=== PATIENT | female | born 1950 | race Caucasian/White ===

== ENCOUNTER → 2020-04-03 | Outpatient (CLI) | payer MEDICARE, OTHER ==
--- NOTE | 2020-03-30 12:50 | HP ---
HISTORY AND PHYSICAL CHIEF COMPLAINT: Right shoulder pain. HISTORY OF PRESENT ILLNESS: The patient is a 70-year-old, left-hand dominant, retired female who presents with progressive right shoulder pain worsening after injury in October of this year. She fell landing on her right shoulder. She notes diminished motion and pain ever since. She is having difficult time raising her arm overhead. She is also having significant night symptoms. She has tried medications without much relief. PAST MEDICAL HISTORY: Significant for depression, arthritis. PAST SURGICAL HISTORY: Significant for left rotator cuff repair, splenectomy. CURRENT MEDICATIONS: Amitriptyline, aspirin, hydroxyzine, Motrin and Lortab. ALLERGIES: BENADRYL, SHELLFISH. FAMILY HISTORY: Significant for heart disease and cancer. SOCIAL HISTORY: Significant for one pack per day tobacco use. REVIEW OF SYSTEMS: Sixteen-point review of systems otherwise reviewed and is noncontributory. PHYSICAL EXAMINATION: On examination, the patient is approximately 5 foot 6, 175 pounds of mesomorphic habitus. HEENT exam is nonfocal. Neck is supple. On examination of her right shoulder, she is tender about the anterior subacromial space. She has moderate subacromial crepitus. Active range of motion. Forward elevation 135 degree, external rotation with the arm at side 10 degrees, internal rotation to L2. Motor strength is 4-/5 for external rotation and 4-/5 for abduction. Impingement test, Neer test, and Speed test are positive. Her distal neurovascular otherwise appears intact in the right upper extremity. MRI of right shoulder 03/08/2020 shows a retracted large rotator cuff tear with muscular atrophy. Subluxation along the biceps is noted. IMPRESSION: Acute on chronic large right rotator cuff tear with arthropathy. RECOMMENDATIONS: I talked to the patient at length regarding her condition along with treatment options. At this point, she is quite symptomatic and limited because of pain. After thorough discussion, she opts to proceed with surgery. We will plan to proceed with right reverse total shoulder arthroplasty. We will institute DVT prophylaxis postoperatively. The risks and benefits were discussed at length in layman's terms. MMODL / IJN: [id number] /
--- NOTE | 2020-04-03 13:29 | EST ---
EXERCISE STRESS AGE: 70 SEX: F HT: 66" WT: 165 lbs. PROTOCOL: Ronnie STAGE: 2 DURATION OF EXERCISE: 5:00 HEART RATE REST: 92 BLOOD PRESSURE REST: 110/81 MAXIMUM HEART RATE ACHIEVED: 138 MAXIMUM BLOOD PRESSURE: 148/74 85% MPHR: 128 100% MPHR: 150 METS: 7.0 INDICATIONS: Abnormal EKG. CLINICAL INFORMATION: Baseline EKG revealed normal sinus rhythm with precordial T-wave inversion and right ventricular conduction delay. Patient walked for 5 minutes on standard Ronnie protocol. Achieved a maximal heart rate of 136 beats per minute which is more than 85% of predicted maximum. Developed fatigue and shortness of breath but did not have any angina or arrhythmia. There was a lot of baseline artifact. Rare PVCs were noted. There is no evidence of stress-induced ischemia on this study and patient did not have angina. FINAL IMPRESSION .: 1. Limited exercise capacity. 2. Negative stress test by EKG criteria, even though there were minor resting EKG changes to begin with. The patient achieved a heart rate of well above 85% of predicted maximal. MMODL / IJN: [id number] /
== END | disposition home or self-care (01) ==
LOC: RADNMMAIN 10:13
PROVIDERS: ATTEND Family Medicine
DX: R94.31 Abnormal electrocardiogram [ECG] [EKG] (principal)
CPT/HCPCS: 93017

== ENCOUNTER 2020-04-09 07:12 | Inpatient (IN) | payer MEDICARE, OTHER ==
[2020-04-01 18:00] VITALS: BMI 26.6
[~2020-04-09 07:12] MED LIST: ACETAMINOPHEN TAB 500 MG TAB PO ONE; DEXAMETHASONE SOD PHOSPHATE 10 MG/ML 1 ML VIAL IV ONE; MELOXICAM 7.5 MG TAB PO ONE; MIDAZOLAM 2 MG/2 ML VIAL IV PRN; ONDANSETRON 4 MG/2 ML VIAL IVP ONE; TRANEXAMIC ACID 1,000 MG in SODIUM CHLORIDE 0.9% 100 ML IVPB ONE; VANCOMYCIN 1,000 MG in SODIUM CHLORIDE 0.9% 250 ML IVPB ONE
[2020-04-09] MEDS: LACTATED RINGERS 1,000 ML IV SCH (08:32)
[2020-04-09] MEDS ORDERED: LIDOCAINE 1% (10MG/ML) FOR IV START INTRADERMA ONE (08:32)
[2020-04-09] MEDS ORDERED: ONDANSETRON 4 MG/2 ML VIAL ONE (08:38)
[2020-04-09] MEDS ORDERED: ACETAMINOPHEN TAB 500 MG TAB ONE (08:39)
[2020-04-09] MEDS ORDERED: SODIUM CHLORIDE 0.9% 100 ML BAG ONE (10:27)
[2020-04-09] MEDS ORDERED: SUCCINYLCHOLINE CHLORIDE 100 MG/5 ML SYR IV ONE (10:27)
[2020-04-09] MEDS ORDERED: PROPOFOL 10 MG/ML 20 ML VIAL IV ONE (10:27)
[2020-04-09] MEDS ORDERED: ROPIVACAINE 5 MG/ML 30 ML VIAL ONE (10:27)
[2020-04-09] MEDS ORDERED: ROCURONIUM 10 MG/ML (5 ML VIAL) IV ONE (10:27)
[2020-04-09] MEDS ORDERED: TRANEXAMIC ACID 1,000 MG/10 ML VIAL ONE (10:27)
[2020-04-09] MEDS ORDERED: fentaNYL (PF) 50 MCG/ML 2 ML AMP ONE (10:27)
[2020-04-09] MEDS ORDERED: LIDOCAINE 1% INJ 10MG/ML (20 ML MDV) ONE (10:27)
[2020-04-09] MEDS ORDERED: MIDAZOLAM 2 MG/2 ML VIAL ONE (10:27)
[2020-04-09] MEDS ORDERED: HYDROmorphone (PF) 1 MG/ML ONE (10:27)
[2020-04-09] MEDS ORDERED: NEOSTIGMINE 1 MG/ML 10 ML VIAL ONE (10:27)
[2020-04-09] MEDS ORDERED: PHENYLEPHRINE-0.9% NACL SYG 1 MG/10 ML SYRINGE ONE (10:27)
[2020-04-09] MEDS ORDERED: GLYCOPYRROLATE 0.2 MG/ML 2 ML VIAL ONE (10:27)
[2020-04-09] MEDS ORDERED: ceFAZolin 3,000 MG in SODIUM CHLORIDE 0.9% IRRIGATIO 3,000 ML IRRIGATION ONE (10:58)
[2020-04-09] MEDS ORDERED: HYDROcodone/APAP 5-325MG 1 EACH TAB PO PRN (12:32)
[2020-04-09] MEDS ORDERED: ONDANSETRON 4 MG/2 ML VIAL IVP PRN (12:32)
[2020-04-09] MEDS ORDERED: LACTATED RINGERS 1,000 ML IV ONE (12:47)
--- NOTE | 2020-04-09 12:55 | P.OP ---
Date of Procedure: 04/09/20 Preoperative Diagnosis: Right rotator cuff arthropathy/chronic rotator cuff tear Postoperative Diagnosis: Same Procedure(s) Performed: Right reverse total shoulder arthroplasty Implants: Depuy Delta Xtend size 10 press-fit humeral stem/size 1 epiphysis, 38+15 articular surface, 38 mm glenosphere with standard base plate. Anesthesia: NIKO Surgeon: Reese Huerta Cargo Surveyor #1: Gonzales Johnson Estimated Blood Loss (ml): 100 Pathology: other (Humeral head) Condition: stable Disposition: PACU Indications for Procedure: The patient's a 70-year-old female presents with progressive right shoulder pain after a a previous injury. Clinically she was noted of evidence of an acute on chronic rotator cuff tear with arthropathy. A discussion of the risks and benefits of operative intervention versus continued conservative measures was made with the patient. She opted to proceed with surgery. Specific risks of surgery to include infection, neurovascular injury, development of blood clots, possible fracture, possible instability and need for subsequent procedures was discussed. Informed consent was obtained. Operative Findings: As below Description of Procedure: The patient was brought to the operating room, and after induction of general anesthesia was placed in a beachchair position. The bony prominences were appropriately padded. I examined the right shoulder. There was moderate lack of passive forward elevation and external rotation. The right upper extremity was prepped and draped in normal fashion. The bony outlines the coracoid process, distal clavicle, and acromion were outlined with a skin marker. A pulse centimeter deltopectoral incision was made lateral to the coracoid process. Skin was incised sharply. Subcutaneous tissues were divided bluntly. Electrocautery was used for hemostasis. The cephalic vein was identified and gently retracted laterally with the deltoid. The deltopectoral was bluntly developed. Subdeltoid adhesions were then released. The self-retaining retractor was placed. The conjoined tendon was retracted medially and the deltoid laterally. The biceps was identified. Its sheath was opened. A biceps tenotomy was performed along the remaining tendon did retract distally. Pseudocapsule was excised. The head was then exposed. The shoulder was dislocated. A starting hole was made in line with the humeral shaft. The canal was reamed by hand up to size 10. There was good distal chatter. The cutting guide was then placed. I planned on 20 of retroversion. The humeral head cut was then made. The bone was removed in one fragment. Residual inferomedial osteophytes were removed flush with the eek cortical bone. Attention was then paid towards preparing the glenoid. An anterior and posterior retractors placed. The labrum was released from the 12-6 o'clock position. Remaining biceps was removed as well. A guidepin was placed in the inferior aspect of the glenoid with the guide slightly tilting inferior. The reamer was used down to a bleeding bony surface. The central peg hole was drilled. The standard baseplate was inserted with good purchase. Inferior, superior, and posterior lo cking screws the appropriate length were placed. Good purchase was obtained. The 38 mm glenosphere was inserted over a guidewire. This was fully seated. Care was taken to avoid any soft tissue interposition. Attention was then paid towards preparing the proximal humerus. The appropriate broach was placed and 20 of retroversion and was fully seated. An eccentric size 1 epiphyseal reamer was utilized. A size 10 stem with a size 1 epiphysis was placed and 20 of retroversion. Trial reduction was obtained with a 38 mm + 15 articular surface. The shoulder was taken through range of motion. He was felt to be stable in flexion and extension with internal and external rotation. I felt there was adequate presybeterian of soft tissue tension judging off the conjoined tendon. The shoulder was gently dislocated. The trial components were then removed. The final size 10 press-fit stem along with a size 1 epiphysis was fully seated. There was good rotational stability. The 38 mm + 15 articular surface was impacted. The shoulder again was gently reduced and taken through range of motion. Again it was felt to be stable in all planes. Pulsatile lavage was utilized. The subscapularis was a attached to the lesser tuberosity with #2 Ethibond suture. The deltopectoral interval was closed with interrupted 2-0 Vicryl sutures. The skin was reapproximated with 3-0 subcuticular Prolene suture. Steri-Strips were applied. A sterile dressing was applied. A sling was placed. The patient was awoken from general anesthesia and transferred to recovery room in good condition. Blood loss was estimated at 100 mL. No complications were incurred. Sponge and needle counts were correct at the end the case. Gordo REID assisted during the major components of the case to include exposure, glenoid and humeral preparation, implantation, and closure.
[2020-04-09] MEDS: HYDROmorphone 0.5 MG/0.5 ML SYRINGE IVP PRN ×2 (13:04→13:09)
--- NOTE | 2020-04-09 13:25 | XR ---
EXAMINATION TYPE: XR shoulder limited RT DATE OF EXAM: 04/09/2020 CLINICAL HISTORY: Status post reverse right total shoulder arthropla TECHNIQUE: 2views of the right shoulder are obtained. COMPARISON: None FINDINGS: Glenohumeral arthroplasty is noted to be in place. Alignment is anatomic. Postsurgical soft tissue changes noted. IMPRESSION: As above.
--- NOTE | 2020-04-09 14:03 | P.ANPRN ---
Procedure Note - Anesthesia - Nerve Block Performed Right Interscalene Time Out Performed: Yes (:29) Date of Procedure: 04/09/20 Procedure Start Time: Procedure Stop Time: : Location of Patient: Phase I Indication: Acute Post-Operative Pain, Requested by Surgeon (Dr Huerta) Sedation Type: Sedate with meaningful contact maintained Preparation: Sterile Prep Position: Supine Catheter: None Needle Types: Pajunk (22g) Needle Gauge: Other (see comment) (22g) Ultrasound used to visualize needle placement: Yes Ultrasound used to observe medication spread: Yes Injectate: 0.5% Ropivacaine (see comment for volume) (20 ml) Blood Aspirated: No Pain Paresthesia on Injection Noted: No Resistance on Injection: Normal Image Stored and Saved: Yes Events: Uneventful and Well Tolerated
[2020-04-09] MEDS ORDERED: hydrOXYzine HCL 25 MG TAB PO PRN (16:16)
[2020-04-09] MEDS: NICOTINE 21MG/24HR PATCH TRANSDERM SCH (17:17)
[2020-04-09] MEDS: AMITRIPTYLINE HCL 50 MG TAB PO SCH (20:46)
[2020-04-09] MEDS: PREGABALIN 75 MG CAP PO SCH (20:47)
--- NOTE | 2020-04-09 21:38 | P.CONS ---
History of Present Illness - Reason for Consult Consult date: 04/09/20 Medical management Requesting physician: Reese Huerta - Chief Complaint Right shoulder pain - History of Present Illness Consultation: This is a pleasant 70-year-old patient of Dr. celestin.. Lives in [place] in the winter. Patient had taken a fall and had a fracture of the shoulder. Because of the COVID 19 [place] wasn't able to have surgery. Patient today underwent right total shoulder arthroplasty reverse. I dominants laying. It is numb from anesthesia. Chronic stable medical conditions include eczema, Auster throat is, chronic neuropathy. No nausea vomiting. No chronic symptoms. Laying in bed. 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 Lives alone. Physical examination: VITAL SIGNS: 98.3, 100, 18, 110/69, 93% on 2 L] GENERAL: BMI 28.8, sitting up on the bed, awake. EYES: Pupils equal. Conjunctiva normal. HEENT: External appearance of nose and ears normal, oral cavity grossly normal. NECK: JVD not raised; masses not palpable. HEART: First and second heart sounds are normal; no edema. LUNGS: Respiratory rate normal; decreased breath sounds. ABDOMEN: Soft, nontender, liver spleen not palpable, no masses palpable. PSYCH: Alert and oriented x3; mood and affect normal. MUSCULAR skeletal: Right arm in a sling. Dressing of the right shoulder. NEUROLOGICAL: Cranial nerves grossly intact; no facial asymmetry, power and sensation grossly intact. LYMPHATICS: No lymph nodes palpable in the axilla and neck Investigations: No labs from today Assessment: -Right shoulder arthroplasty following previous injury from fall -Chronic eczema -Chronic diffuse neuropathy -Primary osteoarthritis Plan: Patient right arm in a sling. Home medications to be resumed. Patient has peripheral DVT prophylaxis. Pain control in place. Care was discussed with the patient question answered Thank you Dr. Caraballo Past Medical History Past Medical History: Cancer, Musculoskeletal Disorder, Osteoarthritis (OA), Skin Disorder Additional Past Medical History / Comment(s): PERICARDITIS 1969, SKIN VERY SENSITIVE TO COLOR DYES, hx. eczema, SKIN CANCER CHEST WALL- SQUAMOUS CELL- REMOVED, HUMAN PARVOVIRUS(5TH DISEASE)1994- CAUSING PT NEUROPATHY-ACHES ALL OVER-CHRONIC PAIN ALL THE TIME History of Any Multi-Drug Resistant Organisms: None Reported Past Surgical History: Orthopedic Surgery, Tonsillectomy Additional Past Surgical History / Comment(s): LT ROTATOR CUFF REPAIR X 2- LAST ONE 04/10/14, SPLEENECTOMY, arthroscopy right knee Past Anesthesia/Blood Transfusion Reactions: Previous Problems w/ Anesthesia Additional Past Anesthesia/Blood Transfusion Reaction / Comm: DIFFICULT INTUBATION Past Psychological History: No Psychological Hx Reported Smoking Status: Current every day smoker Past Alcohol Use History: Rare Additional Past Alcohol Use History / Comment(s): SMOKER SINCE 1969-SMOKES ABOUT 1/2 PPD Past Drug Use History: None Reported - Past Family History Mother Family Medical History: Cancer Additional Family Medical History / Comment(s): PANCREATIC CA Father Family Medical History: CVA/TIA Medications and Allergies Home Medications Medication Instructions Recorded Confirmed Type Amitriptyline HCl [Elavil] 50 mg PO BID 04/04/14 04/09/20 History Aspirin EC [Ecotrin] 81 mg PO DAILY 04/04/14 04/09/20 History Ibuprofen [Motrin] 800 mg PO Q8HR PRN 04/04/14 04/09/20 History Pregabalin [Lyrica] 150 mg PO BID 04/04/14 04/09/20 History hydrOXYzine HCL [Atarax] 25 mg PO TID PRN 04/04/14 04/09/20 History Vit C/E/Zn/Coppr/Lutein/Zeaxan 1 each PO DAILY 04/01/20 04/09/20 History [Preservision Areds 2 Softgel] Allergies Allergy/AdvReac Type Severity Reaction Status Date / Time diphenhydramine HCl Allergy Severe Swelling Verified 04/09/20 08:04 [From Benadryl] poliomyelitis vaccine, live Allergy Unknown Unknown Verified 04/09/20 08:04 oral Childhood [poliomyelitis vaccine,live] shellfish derived Allergy Unknown Swelling Verified 04/09/20 08:04 color dyes Allergy Itching & Uncoded 04/09/20 08:04 Rash- skin very sensitive chlorine AdvReac Rash/Hives Uncoded 04/09/20 08:04 Physical Exam Vitals: Vital Signs Temp Pulse Pulse Resp BP BP Pulse Ox 04/09/20 19:14 98.3 F 100 18 110/69 93 L 04/09/20 17:00 92 109/61 04/09/20 16:45 92 114/74 96 04/09/20 16:30 89 97 04/09/20 16:25 18 84 L 04/09/20 16:15 91 116/72 96 04/09/20 16:00 90 95 04/09/20 15:45 89 89 105/69 96 04/09/20 15:30 88 88 18 114/73 88 L 04/09/20 14:30 79 16 112/74 95 04/09/20 14:00 90 16 91/54 94 L 04/09/20 13:45 80 14 107/64 95 04/09/20 13:30 61 16 115/64 96 04/09/20 13:15 80 18 134/68 98 04/09/20 13:00 87 14 121/71 100 04/09/20 12:49 97.6 F 91 16 133/56 98 04/09/20 08:29 97.9 F 83 18 124/65 96 Intake and Output 04/09/20 04/09/20 04/09/20 06:59 14:59 22:59 Intake Total 1950 Output Total 100 Balance 1850 Intake: IV 1950 Output: Estimated Blood Loss 100 Other: # Voids 1 Weight 80.9 kg
[2020-04-10] MEDS: LACTATED RINGERS 1,000 ML IV SCH (05:02)
[2020-04-10] MEDS: HYDROmorphone 0.5 MG/0.5 ML SYRINGE IVP PRN ×4 (07:12→20:03)
[2020-04-10] MEDS: AMITRIPTYLINE HCL 50 MG TAB PO SCH ×2 (07:15→20:03)
[2020-04-10] MEDS ORDERED: ASPIRIN 81 MG PO SCH (09:00)
[2020-04-10] MEDS ORDERED: NON FORMULARY DRUG (Vit C/E/Zn/Coppr/Lutein/Zeaxan [Preservision Areds 2 Softgel] 1 EACH) PO SCH (09:00)
[2020-04-10 09:43] LABS: Basophils % (A) 0 %; Eosinophils # (A) 0.3 k/uL (0-0.7); Eosinophils % (A) 2 %; HCT 40.6 % (34.0-46.0); HGB 13.1 gm/dL (11.4-16.0); Lymphocytes % (A) 22 %; MCH 29.6 pg (25.0-35.0); MCHC 32.3 g/dL (31.0-37.0); MCV 91.6 fL (80.0-100.0); Mean Platelet Volume 9.3; Monocytes # (A) 0.9 k/uL (0-1.0); Monocytes % (A) 5 %; Neutrophils # (A) 12.7 k/uL (1.3-7.7); Neutrophils % (A) 70 %; Platelet Count 225 k/uL (150-450); RBC 4.43 m/uL (3.80-5.40); RDW 13.5 % (11.5-15.5)
[2020-04-10] MEDS: PREGABALIN 75 MG CAP PO SCH ×2 (09:44→20:03)
[2020-04-10] MEDS: ASPIRIN 325 MG TAB PO SCH (09:44)
[2020-04-10] MEDS: HYDROcodone/APAP 5-325MG 1 EACH TAB PO PRN ×3 (09:45→23:01)
[2020-04-10] MEDS: NICOTINE 21MG/24HR PATCH TRANSDERM SCH (09:47)
--- NOTE | 2020-04-10 11:06 | P.PN ---
Subjective Progress Note Date: 04/10/20 Principal diagnosis: Status post reverse right total shoulder arthroplasty Patient is evaluated today at bedside, she is resting comfortably. She did have some increase in pain this morning when her block rock. She just received pain medication. She denies any chest pain or shortness of breath. Objective - Vital Signs Vital signs: Vital Signs Temp 98.1 F 04/10/20 07:50 Pulse 80 04/10/20 07:50 Resp 14 04/10/20 07:50 BP 113/70 04/10/20 07:50 Pulse Ox 90 L 04/10/20 07:50 Intake & Output 04/09/20 04/10/20 04/10/20 18:59 06:59 18:59 Intake Total 1950 Output Total 100 Balance 1850 Weight 80.9 kg Intake: IV 1950 Output: Estimated Blood Loss 100 Other: # Voids 1 - Exam Right upper extremity: She's utilizing the arm sling at this time, incision was clean, dry and intact. Minimal soft tissue swelling present. Sensory exam to light touch is intact, radial pulses 2+ - Labs CBC & Chem 7: 04/10/20 08:44 Labs: Abnormal Lab Results - Last 24 Hours (Table) 04/10/20 Range/Units 08:44 WBC 18.0 H (3.8-10.6) k/uL Neutrophils # 12.7 H (1.3-7.7) k/uL Assessment and Plan Assessment: Status post reverse right total shoulder arthroplasty Plan: Pain control, continue utilize oral medication and IV as needed GI DVT prophylaxis, aspirin 325 mg daily Continue use of the arm sling Ice and elevate Medical recommendations Plan for discharge to home tomorrow Time with Patient: Less than 30
--- NOTE | 2020-04-10 23:40 | P.PN ---
Progress Note - Text Progress Note Date: 04/10/20 - Chief Complaint Right shoulder pain Consultation: This is a pleasant 70-year-old patient of Dr. celestin.. Lives in [place] in the winter. Patient had taken a fall and had a fracture of the shoulder. Because of the COVID 19 Michael wasn't able to have surgery. Patient today underwent right total shoulder arthroplasty reverse. . Chronic stable medical conditions include eczema, chronic neuropathy. Today-sitting up in bed. Pain in the right shoulder. Did tolerate some diet. No nausea vomiting. Review of systems: Was done for constitutional, cardiovascular, GI, pulmonary. relevant finding as above Active Medications Hydrocodone Bitart/Acetaminophen ([place] 5-325) 1 each PO Q6HR PRN PRN Reason: Pain Scale 1 to 5 Last Admin: 04/10/20 04:06 Dose: 1 each Documented by: Hydrocodone Bitart/Acetaminophen ([place] 5-325) 2 each PO Q6HR PRN PRN Reason: Pain Scale 6 to 10 Last Admin: 04/10/20 23:01 Dose: 2 each Documented by: Amitriptyline HCl (Elavil) 50 mg PO BID [facility] Last Admin: 04/10/20 20:03 Dose: 50 mg Documented by: Aspirin (Aspirin) 325 mg PO DAILY [facility] Last Admin: 04/10/20 09:44 Dose: 325 mg Documented by: Hydromorphone HCl (Dilaudid) 0.5 mg IVP Q3HR PRN PRN Reason: Pain Scale 4 to 6 Last Admin: 04/10/20 20:03 Dose: 0.5 mg Documented by: Hydroxyzine HCl (Atarax) 25 mg PO TID PRN PRN Reason: Rash Last Admin: 04/09/20 20:47 Dose: 25 mg Documented by: Lactated Ringer's (Lactated Ringers) 1,000 mls @ 40 mls/hr IV .Q24H [facility] Last Admin: 04/10/20 05:02 Dose: Not Given Documented by: Nicotine (Habitrol 21mg/24hr Patch) 1 patch TRANSDERM DAILY [facility] Last Admin: 04/10/20 09:47 Dose: 1 patch Documented by: Ondansetron HCl (Zofran) 4 mg IVP DAILY PRN PRN Reason: Nausea And Vomiting Pregabalin (Lyrica) 150 mg PO BID [facility] Last Admin: 04/10/20 20:03 Dose: 150 mg Documented by: Physical examination: VITAL SIGNS: 97.6, 91, 16, 133/56, 96% room air GENERAL: BMI 28.8, sitting up on the bed, awake. EYES: Pupils equal. Conjunctiva normal. HEENT: External appearance of nose and ears normal, oral cavity grossly normal. NECK: JVD not raised; masses not palpable. HEART: First and second heart sounds are normal; no edema. LUNGS: Respiratory rate normal; decreased breath sounds. ABDOMEN: Soft, nontender, liver spleen not palpable, no masses palpable. PSYCH: Alert and oriented x3; mood and affect normal. MUSCULAR skeletal: Right arm in a sling. Dressing of the right shoulder. Investigations: White count 18 hemoglobin 13.1 Assessment: -Right shoulder arthroplasty following previous injury from fall -Chronic eczema -Chronic diffuse neuropathy -Primary osteoarthritis -Leukocytosis likely reactive from surgery Plan: Some pain is present. Continue current medication for plan. Discussed with the patient. Encouraged to be out of bed. Thank you Dr. Caraballo
[2020-04-11] MEDS: LACTATED RINGERS 1,000 ML IV SCH (04:38)
[2020-04-11] MEDS: HYDROcodone/APAP 5-325MG 1 EACH TAB PO PRN ×2 (04:51→09:56)
[2020-04-11] MEDS: PREGABALIN 75 MG CAP PO SCH ×2 (07:19→21:18)
[2020-04-11] MEDS: AMITRIPTYLINE HCL 50 MG TAB PO SCH ×2 (07:20→21:18)
[2020-04-11] MEDS: ASPIRIN 325 MG TAB PO SCH (07:25)
[2020-04-11] MEDS: NICOTINE 21MG/24HR PATCH TRANSDERM SCH (07:25)
[2020-04-11] MEDS ORDERED: HYDROcodone/APAP 7.5-325MG 1 EACH TAB PO PRN (10:21)
[2020-04-11] MEDS: BUDESONIDE 1 MG/2 ML NEBU INHALATION SCH ×2 (12:55→20:01)
[2020-04-11] MEDS: IPRATROPIUM-ALBUTEROL 3 ML NEB INHALATION SCH ×3 (13:10→20:01)
--- NOTE | 2020-04-11 13:56 | P.PN ---
Subjective Progress Note Date: 04/11/20 Principal diagnosis: Status post reverse right total shoulder arthroplasty Patient is evaluated today at bedside, she is resting comfortably. Patient continued to have increase in pain in the shoulder last night. I was contacted by nursing this morning, we did increase her oral pain medication. Patient would like to stay 1 additional night. Objective - Vital Signs Vital signs: Vital Signs Temp 98.0 F 04/11/20 07:00 Pulse 89 04/11/20 13:18 Resp 16 04/11/20 08:00 BP 137/76 04/11/20 07:00 Pulse Ox 94 L 04/11/20 07:00 Intake & Output 04/10/20 04/11/20 04/11/20 18:59 06:59 18:59 Intake Total 340 300 Balance 340 300 Intake: Oral 340 300 Other: Voiding Method Toilet Toilet Toilet # Voids 2 1 2 - Exam Right upper extremity: She's utilizing the arm sling at this time, incision was clean, dry and intact. Minimal soft tissue swelling present. Sensory exam to light touch is intact, radial pulses 2+ - Labs CBC & Chem 7: 04/10/20 08:44 Assessment and Plan Assessment: Status post reverse right total shoulder arthroplasty Plan: Pain control, continue utilizing the [place] 7.5 mg/325 mg GI DVT prophylaxis, aspirin 325 mg daily Continue use of the arm sling Ice and elevate Medical recommendations Plan for discharge to home tomorrow Time with Patient: Less than 30
[2020-04-11] MEDS: HYDROcodone/APAP 7.5-325MG 1 EACH TAB PO PRN ×2 (14:12→19:02)
--- NOTE | 2020-04-11 19:26 | P.PN ---
Progress Note - Text Progress Note Date: 04/11/20 - Chief Complaint Right shoulder pain Consultation: This is a pleasant 70-year-old patient of Dr. celestin.. Lives in [place] in the winter. Patient had taken a fall and had a fracture of the shoulder. Because of the pandemic wasn't able to have surgery. Patient today underwent right total shoulder arthroplasty reverse. . Chronic stable medical conditions include eczema, chronic neuropathy. Today-significant pain in the right shoulder. Wheezing. Short of breath. Slight cough. Had been smoking up to admission. Eating little bit. Review of systems: Was done for constitutional, cardiovascular, GI, pulmonary. relevant finding as above Active Medications Hydrocodone Bitart/Acetaminophen ([place] 7.5-325) 2 each PO Q6H PRN PRN Reason: Pain Last Admin: 04/11/20 19:02 Dose: 2 each Documented by: Hydrocodone Bitart/Acetaminophen ([place] 7.5-325) 1 each PO Q6H PRN PRN Reason: Pain Albuterol/Ipratropium (Duoneb 0.5 Mg-3 Mg/3 Ml Soln) 3 ml INHALATION RT-QID [facility] Last Admin: 04/11/20 16:04 Dose: 3 ml Documented by: Amitriptyline HCl (Elavil) 50 mg PO BID [facility] Last Admin: 04/11/20 07:20 Dose: Not Given Documented by: Aspirin (Aspirin) 325 mg PO DAILY [facility] Last Admin: 04/11/20 07:25 Dose: 325 mg Documented by: Budesonide (Pulmicort) 1 mg INHALATION RT-BID [facility] Last Admin: 04/11/20 12:55 Dose: Not Given Documented by: Hydromorphone HCl (Dilaudid) 0.5 mg IVP Q3HR PRN PRN Reason: Pain Scale 4 to 6 Last Admin: 04/10/20 20:03 Dose: 0.5 mg Documented by: Hydroxyzine HCl (Atarax) 25 mg PO TID PRN PRN Reason: Rash Last Admin: 04/09/20 20:47 Dose: 25 mg Documented by: Lactated Ringer's (Lactated Ringers) 1,000 mls @ 40 mls/hr IV .Q24H [facility] Last Admin: 04/11/20 04:38 Dose: Not Given Documented by: Nicotine (Habitrol 21mg/24hr Patch) 1 patch TRANSDERM DAILY [facility] Last Admin: 04/11/20 07:25 Dose: 1 patch Documented by: Ondansetron HCl (Zofran) 4 mg IVP DAILY PRN PRN Reason: Nausea And Vomiting Pregabalin (Lyrica) 150 mg PO BID [facility] Last Admin: 04/11/20 07:19 Dose: 150 mg Documented by: Physical examination: VITAL SIGNS: 98.2, 84, 18, 109/72, 94% on 2 L GENERAL: Laying in bed, short of breath uncomfortable EYES: Pupils equal. Conjunctiva normal. HEENT: External appearance of nose and ears normal, oral cavity grossly normal. NECK: JVD not raised; masses not palpable. HEART: First and second heart sounds are normal; no edema. LUNGS: Respiratory rate increased, decreased breath sounds on expiration wheezing. ABDOMEN: Soft, nontender, liver spleen not palpable, no masses palpable. PSYCH: Alert and oriented x3; mood and affect normal. MUSCULAR skeletal: Right arm in a sling. Dressing of the right shoulder. Investigations: White count 18 hemoglobin 13.1 Assessment: -Right shoulder arthroplasty following previous injury from fall -Chronic eczema -Chronic diffuse neuropathy -Primary osteoarthritis -Leukocytosis likely reactive from surgery -Acute COPD exacerbation in a current smoker Plan: DuoNeb added, and inhaled steroids. We will also add oral steroids. Discussed with patient. Thank you Dr. Caraballo
[2020-04-11 20:08] VITALS: RESP 16
[2020-04-11] MEDS: predniSONE 20 MG TAB PO SCH (21:18)
[2020-04-12] MEDS: HYDROcodone/APAP 7.5-325MG 1 EACH TAB PO PRN (04:23)
[2020-04-12] MEDS: LACTATED RINGERS 1,000 ML IV SCH (06:14)
[2020-04-12] MEDS: NICOTINE 21MG/24HR PATCH TRANSDERM SCH (07:32)
[2020-04-12] MEDS: predniSONE 20 MG TAB PO SCH (07:33)
[2020-04-12] MEDS: PREGABALIN 75 MG CAP PO SCH (07:33)
[2020-04-12] MEDS: ASPIRIN 325 MG TAB PO SCH (07:33)
[2020-04-12 07:35] VITALS: BP 109/68; TEMP 97.7
[2020-04-12] MEDS: AMITRIPTYLINE HCL 50 MG TAB PO SCH (07:35)
[2020-04-12] MEDS: IPRATROPIUM-ALBUTEROL 3 ML NEB INHALATION SCH ×2 (09:41→12:27)
[2020-04-12] MEDS: BUDESONIDE 1 MG/2 ML NEBU INHALATION SCH (09:41)
[2020-04-12 09:53] VITALS: PULSE 88
--- NOTE | 2020-04-12 10:12 | P.PN ---
Subjective Progress Note Date: 04/12/20 Principal diagnosis: Status post reverse right total shoulder arthroplasty Patient is evaluated today at bedside, she is resting comfortably. Patient is doing very well today, her pain is better controlled. Objective - Vital Signs Vital signs: Vital Signs Temp 97.7 F 04/12/20 07:12 Pulse 88 04/12/20 09:52 Resp 16 04/12/20 07:12 BP 109/68 04/12/20 07:12 Pulse Ox 90 L 04/12/20 07:12 Intake & Output 04/11/20 04/12/20 04/12/20 18:59 06:59 18:59 Intake Total 300 120 Balance 300 120 Intake: Oral 300 120 Other: Voiding Method Toilet Toilet Toilet # Voids 2 2 - Exam Right upper extremity: She's utilizing the arm sling at this time, incision was clean, dry and intact. Minimal soft tissue swelling present. Sensory exam to light touch is intact, radial pulses 2+ - Labs CBC & Chem 7: 04/10/20 08:44 Assessment and Plan Assessment: Status post reverse right total shoulder arthroplasty Plan: Pain control, continue utilizing the [place] 7.5 mg/325 mg GI DVT prophylaxis, aspirin 325 mg daily Continue use of the arm sling Ice and elevate Medical recommendations Plan for discharge to home today Time with Patient: Less than 30
--- NOTE | 2020-04-12 10:15 | P.DS ---
Providers Date of admission: 04/09/20 07:12 Expected date of discharge: 04/12/20 Attending physician: Reese Huerta Consults: 04/09/20 12:32 Consult Physician Routine Consulting Provider: Dustin Gamez Reason/Comments: medical management Do you want consulting provider notified?: Yes Primary care physician: Dustin Gamez Hospital Course: Date of admission: 04/09/2020 Date of discharge: [04/12/2020] Admission diagnosis: Status post reverse right total shoulder arthroplasty Discharge diagnosis: Same Attending physician: Dr. Huerta Surgical procedures: Reverse right total shoulder arthroplasty Brief history: Patient is a 70-year-old female with a history of []. At this point patient has failed conservative treatment measures and has opted to proceed with a elective reverse right total shoulder arthroplasty. Hospital course: Details of patient's surgery can be found in operative report. Patient tolerated the procedure well and was subsequently transported to orthopedic floor. Patient's orthopeidc and medical care was provided daily. Patient had daily laboratory tests performed for evaluation of overall blood counts. Patient had daily physical therapy to include strengthening range of motion as well as education with walker ambulation. Patient was treated with aspirin for their postoperative DVT prophylaxis during their inpatient stay. Patient was noted to have a relatively uneventful postoperative course. Patient reported satisfactory pain control with oral pain medications by postoperative day 0. Patient showed satisfactory progress with physical therapy. Patient moved steadily through the program and had no difficulty meeting the goals by postoperative day 2. Given patient's otherwise satisfactory course and having met physical therapy goals, plan is to discharge patient [home] on postoperative day 3. Discharge condition/disposition: Patient will be discharged [home] in stable condition. Discharge medications: Instructions are given on resumption of patient's normal daily medications per primary care recommendation, in addition patient will be prescribed [place] 7.5 mg April 2025 milligrams, Colace 100 mg, aspirin 325 mg. Discharge instructions: 1. Wound care and infection precautions, [keep incision dry and covered while showering], no lotions, creams, moisturizers. No soaking, tubs, pools, hottubs. Do not scrub over the incision. 2. Utilize arm sling 3. Ice and elevate when necessary. Do not exceed 20 minutes per hour with ice pack. 4. Utilize compression sleeve until seen at first follow up appointment. 7. Pain meds and anticoagulants per prescription. 8. Pain medication has potential to cause constipation. Increase oral fluid and fiber intake. Contact primary care provider if you have not had a bowel movement within 48 hours after discharge 9. No anti-inflammatory medication until discussed at first post operative visit, this including Motrin, Aleve, Mobic, Diclofenac 10. Follow up in office at 2 weeks postop with Gordo Johnson PA-C 11. Follow up with your primary care doctor 7-10 days after discharge. 12. Contact [facility] with any questions, . Procedures: Reverse right total shoulder arthroplasty Patient Condition at Discharge: Good Plan - Discharge Summary Discharge Rx Participant: No New Discharge Prescriptions: New Aspirin 325 mg PO DAILY #30 tab Docusate [Colace] 100 mg PO DAILY #30 capsule HYDROcodone/APAP 7.5-325MG [[place] 7.5] 1 - 2 each PO Q6HR PRN #40 tab PRN Reason: Pain No Action Ibuprofen [Motrin] 800 mg PO Q8HR PRN PRN Reason: Pain hydrOXYzine HCL [Atarax] 25 mg PO TID PRN PRN Reason: Rash Aspirin EC [Ecotrin] 81 mg PO DAILY Amitriptyline HCl [Elavil] 50 mg PO BID Pregabalin [Lyrica] 150 mg PO BID Vit C/E/Zn/Coppr/Lutein/Zeaxan [Preservision Areds 2 Softgel] 1 each PO DAILY Discharge Medication List Amitriptyline HCl [Elavil] 50 mg PO BID 04/04/14 [History] Aspirin EC [Ecotrin] 81 mg PO DAILY 04/04/14 [History] Ibuprofen [Motrin] 800 mg PO Q8HR PRN 04/04/14 [History] Pregabalin [Lyrica] 150 mg PO BID 04/04/14 [History] hydrOXYzine HCL [Atarax] 25 mg PO TID PRN 04/04/14 [History] Vit C/E/Zn/Coppr/Lutein/Zeaxan [Preservision Ared[place] 2 Softgel] 1 each PO DAILY 04/01/20 [History] Aspirin 325 mg PO DAILY #30 tab 04/12/20 [Rx] Docusate [Colace] 100 mg PO DAILY #30 capsule 04/12/20 [Rx] HYDROcodone/APAP 7.5-325MG [[place] 7.5] 1 - 2 each PO Q6HR PRN #40 tab 04/12/20 [Rx] Follow up Appointment(s)/Referral(s): Gonzales Johnson PAC [PHYSICIAN [employer]OR] - 04/24/20 3:10 pm Dustin Gamez MD [Primary Care Provider] - 04/18/20 2:00 pm (With Paulette Wray) Activity/Diet/Wound Care/Special Instructions: Orthopedic Discharge Instructions: 1. Wound care and infection precautions, keep incision dry and covered while showering, no lotions, creams, moisturizers. No soaking, pools, hot tubs. Do not scrub over incision. 2. Utilize arm sling 3. Ice and elevate when necessary. Do not exceed 20 minutes per hour with ice pack. 4. Utilize compression sleeve until seen at first follow up appointment. 5. Pain meds and anticoagulants per prescription. 6. Pain medication has potential to cause constipation. Increase oral fluid and fiber intake. Contact primary care provider if you have not had a bowel movement within 48 hours after discharge. 7. No anti-inflammatory medication until discussed at first post operative visit, this including Motrin, Aleve, Mobic, Diclofenac. 8. Follow up in office at 2 weeks postop with Gordo Johnson PA-C 9. Follow up with your primary care doctor 7-10 days after discharge. 10. Contact [facility] with any questions, . Discharge Disposition: HOME WITH HOME HEALTH SERVICES
--- NOTE | 2020-04-12 23:39 | P.PN ---
Progress Note - Text Progress Note Date: 04/12/20 - Chief Complaint Right shoulder pain Consultation: This is a pleasant 70-year-old patient of Dr. celestin.. Lives in [place] in the winter. Patient had taken a fall and had a fracture of the shoulder. Because of the COVID 19 pandemic wasn't able to have surgery. Patient today underwent right total shoulder arthroplasty reverse. . Chronic stable medical conditions include eczema, chronic neuropathy.had a COPD exacerbation. 2. Bronchitis steroids. Today-respiratory symptoms much improved. Patient right shoulder posterior was better control. Discussed with the patient. Eating much better. Review of systems: Was done for constitutional, cardiovascular, GI, pulmonary. relevant finding as above current medications reviewed in electronic records Physical examination: VITAL SIGNS: 97.7, 78, 16, 109/68, 90% room air GENERAL: sitting up, breathing much improved EYES: Pupils equal. Conjunctiva normal. HEENT: External appearance of nose and ears normal, oral cavity grossly normal. NECK: JVD not raised; masses not palpable. HEART: First and second heart sounds are normal; no edema. LUNGS: Respiratory rate normal, decreased breath sounds . ABDOMEN: Soft, nontender, liver spleen not palpable, no masses palpable. PSYCH: Alert and oriented x3; mood and affect normal. MUSCULAR skeletal: Right arm in a sling. Dressing of the right shoulder. Investigations: White count 18 hemoglobin 13.1 Assessment: -Right shoulder arthroplasty following previous injury from fall -Chronic eczema -Chronic diffuse neuropathy -Primary osteoarthritis -Leukocytosis likely reactive from surgery -Acute COPD exacerbation in a current smoker-improvement Plan: patient will be discharged home on DuoNeb, steroid burst and Symbicort. Discussed with the patient at length. Thank you Dr. Caraballo
== END 2020-04-12 12:28 | disposition home or self-care (01) | DRG 483 ==
LOC: 2ORMAIN 07:12 → 4SSUR 14:27
PROVIDERS: ADMIT Orthopaedic Surgery; ATTEND Orthopaedic Surgery
PROC: 0RRJ00Z Replacement of Right Shoulder Joint with Reverse Ball and Socket Synthetic Substitute, Open Approach (ICD-10-PCS; principal; 2020-04-09 10:20)
DX: M19.111 Post-traumatic osteoarthritis, right shoulder (principal); J44.1 Chronic obstructive pulmonary disease with (acute) exacerbation; G62.89 Other specified polyneuropathies; L30.9 Dermatitis, unspecified; G62.9 Polyneuropathy, unspecified; S46.011A Strain of muscle(s) and tendon(s) of the rotator cuff of right shoulder, initial encounter; F17.210 Nicotine dependence, cigarettes, uncomplicated; B94.8 Sequelae of other specified infectious and parasitic diseases; D72.829 Elevated white blood cell count, unspecified; R21 Rash and other nonspecific skin eruption; G89.29 Other chronic pain; W19.XXXA Unspecified fall, initial encounter; Z79.82 Long term (current) use of aspirin; Z79.899 Other long term (current) drug therapy; Z90.81 Acquired absence of spleen; Z85.828 Personal history of other malignant neoplasm of skin; Z98.890 Other specified postprocedural states; Z88.7 Allergy status to serum and vaccine; Z88.8 Allergy status to other drugs, medicaments and biological substances; Z91.02 Food additives allergy status; Z91.013 Allergy to seafood; Z80.0 Family history of malignant neoplasm of digestive organs; Z82.3 Family history of stroke; Z82.49 Family history of ischemic heart disease and other diseases of the circulatory system
CPT/HCPCS: 64415; 76942; 85025; 88300; 94640; 94760